=== PATIENT | male | born 1970 | race Caucasian/White ===

== ENCOUNTER 2020-11-06 01:47 | Emergency (ER) | payer SELFPAY ==
[~2020-11-06] VITALS: Ht 182.9 cm; Wt 119.6 kg
--- NOTE | 2020-11-06 03:53 | NUR ---
PT. TO ROOM FROM LOBBY AT THIS TIME.
--- NOTE | 2020-11-06 05:14 | NUR ---
PT. AMBULATORY TO X-RAY AT THIS TIME.
--- NOTE | 2020-11-06 06:29 | NUR ---
US AT BS AT THIS TIME.
[2020-11-06 06:50] VITALS: BP 117/82
--- NOTE | 2020-11-06 06:50 | NUR ---
US COMPLETED. VS UPDATED. PT. DENIES NEEDS. ALL SAFETY MEASURES OBSERVED. AWAITING RAD READ FOR US.
--- NOTE | 2020-11-06 07:02 | NUR ---
REPORT TO MATT ROCHA.
== END 2020-11-06 07:27 | disposition home or self-care (01) ==
LOC: ED 06:53
DX: M79.661 Pain in right lower leg (principal); M25.561 Pain in right knee; M79.89 Other specified soft tissue disorders
CPT/HCPCS: 99284